=== PATIENT | female | born 1985 | race Two or more races ===

== ENCOUNTER 2016-10-15 13:24 | Emergency (ER) | payer SELFPAY ==
[~2016-10-15] VITALS: Ht 165.1 cm; Wt 96.6 kg
[2016-10-15 14:08] LABS: Urine Bilirubin Negative (Negative); Urine Blood 2+ /uL (Negative); Urine Color Yellow (Yellow); Urine Glucose Normal (Normal); Urine Ketone 1+ (Negative); Urine Mucus FEW (None Seen); Urine Nitrite POSITIVE (Negative); Urine RBC 47 /hpf (0 - 4); Urine Squamous Epithelial Cell MOD /hpf (<5); Urine pH 5.5 (5.0-8.0)
[2016-10-15 14:18] LABS: Basophils # (auto) 0 uL; DEFINITIVE VIEW TRANSMISSION; Eosinophils # (auto) 0 uL; Hematocrit 40.5 % (36.0-46.0); Hemoglobin 13.2 g/dL (12.2-16.2); Lymphocytes # (auto) 0.6 uL; Lymphocytes % (auto) 8.8 % (10.0-50.0); Mean Corpuscular Hemoglobin 23.5 pg (28.0-32.0); Mean Corpuscular Hgb Conc. 32.5 g/dL (32.0-36.0); Mean Corpuscular Volume 72.3 fL (80.0-100.0); Mean Platelet Volume 10.7 fL (7.4-10.4); Monocytes # (auto) 0.6 uL; Monocytes % (auto) 7.7 % (0.0-12.0); Neutrophils # (auto) 6.2 uL; Neutrophils % (auto) 83.5 % (37.0-80.0); Platelet Count (auto) 236 10^3/uL (140-450); Red Cell Distribution Width 16.5 % (11.6-16.0); White Blood Cell 7.4 10^3/uL (4.4-10.8)
[2016-10-15 14:53] LABS: Albumin 3.9 g/dL (3.4-5.0); BUN/Creatinine Ratio 11.5; Bilirubin, Total 0.7 mg/dL (0.2-1.0); Calcium 8.4 mg/dL (8.5-10.1); Potassium 3.8 mmol/L (3.5-5.1); Total Protein 8.5 g/dL (6.4-8.2)
[2016-10-15] MEDS ORDERED: IBUPROFEN 600 MG TAB PO ONE ×2 (16:09→16:15)
[2016-10-15] MEDS ORDERED: ACETAMINOPHEN 500 MG TAB PO ONE (16:09)
[2016-10-15 16:10] VITALS: BP 130/84
[2016-10-15] MEDS ORDERED: ACETAMINOPHEN 325 MG TAB PO ONE (16:15)
[2016-10-15] MEDS: ACETAMINOPHEN 325 MG TAB PO ONE ×2 (16:16→16:22)
[2016-10-15] MEDS ORDERED: cefTRIAXone SOD 1,000 MG VL IM ONE (16:30)
== END 2016-10-15 17:20 | disposition home or self-care (01) ==
LOC: ER 13:29
DX: N39.0 Urinary tract infection, site not specified (principal); E07.89 Other specified disorders of thyroid
CPT/HCPCS: 36415; 76705; 80053; 81001; 82150; 83690; 84443; 85025; 93005; 96372; 99285; J0696

== ENCOUNTER 2017-02-28 11:21 | Emergency (ER) | payer SELFPAY ==
[~2017-02-28] VITALS: Ht 160 cm; Wt 95.3 kg
[2017-02-28 12:13] LABS: Basophils # (auto) 0.1 uL; Hemoglobin 13.3 g/dL (12.2-16.2); Monocytes # (auto) 0.4 uL; White Blood Cell 6.3 10^3/uL (4.4-10.8)
[2017-02-28 12:15] LABS: Basophils % (auto) 0.8 % (0.0-2.0); Eosinophils # (auto) 0.2 uL; Eosinophils % (auto) 2.7 % (0.0-7.0); Hematocrit 41.1 % (36.0-46.0); Lymphocytes # (auto) 1.2 uL; Lymphocytes % (auto) 19.2 % (10.0-50.0); Mean Corpuscular Hemoglobin 25.3 pg (28.0-32.0); Mean Corpuscular Hgb Conc. 32.5 g/dL (32.0-36.0); Mean Platelet Volume 9.3 fL (6.9-10.8); Monocytes % (auto) 6.5 % (0.0-12.0); Neutrophils # (auto) 4.5 uL; Neutrophils % (auto) 70.8 % (37.0-80.0); Nucleated Red Blood Cells % 0.1 %; Platelet Count (auto) 222 10^3/uL (140-450); Red Cell Distribution Width 16.7 % (11.8-14.3)
[2017-02-28 12:48] LABS: Albumin 3.5 g/dL (3.4-5.0); Alkaline Phosphatase 54 U/L (45-117); Anion Gap 9 (5-15); Aspartate Aminotransferase 20 U/L (15-37); BUN/Creatinine Ratio 18.1; Bilirubin, Total 0.3 mg/dL (0.2-1.0); Blood Urea Nitrogen 15 mg/dL (7-18); Calcium 8.7 mg/dL (8.5-10.1); Carbon Dioxide 22 mmol/L (21-32); Chloride 106 mmol/L (98-107); GFR African American 102 mL/min; GFR Non-African American 85 mL/min; Glucose 100 mg/dL (74-106); Potassium 4.3 mmol/L (3.5-5.1); Sodium 137 mmol/L (136-145); Total Protein 8.4 g/dL (6.4-8.2)
[2017-02-28 16:58] VITALS: BP 120/83
== END 2017-02-28 17:00 | disposition home or self-care (01) ==
LOC: ER 11:21
DX: R42 Dizziness and giddiness (principal); R53.1 Weakness; R11.0 Nausea; Z86.73 Personal history of transient ischemic attack (TIA), and cerebral infarction without residual deficits
CPT/HCPCS: 36415; 70450; 80053; 84484; 85025; 93005

== ENCOUNTER 2018-09-15 11:53 | Emergency (ER) | payer OTHER ==
[~2018-09-15] VITALS: Ht 162.6 cm; Wt 102.1 kg
[2018-09-15 12:52] LABS: Urine Bacteria NONE SEEN /hpf (None Seen); Urine Blood 3+ /uL (Negative); Urine WBC 6487 /hpf (0 - 5)
[2018-09-15 12:52] LABS: Basophils # (auto) 0.1 uL; Lymphocytes # (auto) 1.5 uL; Lymphocytes % (auto) 19.7 % (10.0-50.0); Mean Corpuscular Hemoglobin 26.8 pg (28.0-32.0); Nucleated Red Blood Cells % 0.1 %
[2018-09-15 12:53] LABS: Urine Specific Gravity 1.023 (1.001-1.035)
[2018-09-15 12:56] LABS: Basophils % (auto) 0.9 % (0.0-2.0); Eosinophils # (auto) 0.2 uL; Eosinophils % (auto) 3.2 % (0.0-7.0); Hematocrit 44.6 % (36.0-46.0); Hemoglobin 14.4 g/dL (12.2-16.2); Mean Corpuscular Hgb Conc. 32.4 g/dL (32.0-36.0); Mean Corpuscular Volume 82.7 fL (80.0-100.0); Monocytes # (auto) 0.6 uL; Monocytes % (auto) 7.3 % (0.0-12.0); Neutrophils # (auto) 5.2 uL; Neutrophils % (auto) 68.9 % (37.0-80.0); Platelet Count (auto) 238 10^3/uL (140-450); White Blood Cell 7.6 10^3/uL (4.4-10.8)
[2018-09-15 13:04] LABS: Red Cell Distribution Width 20.3 % (11.8-14.3)
[2018-09-15 13:12] LABS: Albumin 3.8 g/dL (3.4-5.0); Calcium 8.5 mg/dL (8.5-10.1); Potassium 3.6 mmol/L (3.5-5.1)
[2018-09-15 13:14] LABS: BUN/Creatinine Ratio 11.6
[2018-09-15 13:17] LABS: Bilirubin, Total 0.5 mg/dL (0.2-1.0); Total Protein 8.2 g/dL (6.4-8.2)
[2018-09-15 16:20] VITALS: BP 124/85
== END 2018-09-15 16:09 | disposition home or self-care (01) ==
LOC: ER 12:02
DX: N39.0 Urinary tract infection, site not specified (principal); Z86.39 Personal history of other endocrine, nutritional and metabolic disease; Z91.041 Radiographic dye allergy status
CPT/HCPCS: 36415; 76830; 76856; 80053; 81001; 81025; 84702; 85025